=== PATIENT | female | born 1965 | race Caucasian/White ===

== ENCOUNTER 2020-03-03 03:59 | Inpatient (IN) ==
[2020-03-03] MEDS ORDERED: Dexamethasone IV 4 MG/ML VIAL 1 ml VIAL IV SLOW PU ONE (04:35)
[2020-03-03 05:05] LABS: ABS Lymphocytes 0.4 10^3/ul (1.0-4.8); ABS Monocytes 0.6 10^3/ul (0-0.8); ABS Neutrophils 14.3 10^3/ul (1.5-7.7); Eosinophil % 0.1 %; Hematocrit 30 % (35-47); Hemoglobin 8.7 g/dL (12.0-16.0); Lymphocyte % 2.6 %; Mean Corpuscular HGB Conc 29 g/dL (31-36); Mean Corpuscular Hemoglobin 19 pg (27-31); Mean Corpuscular Volume 64 fL (80-97); Mean Platelet Volume 8.8 fL (7.4-10.4); Nucleated Red Blood Cells % 0.1; Platelet Count 358 10^3/uL (150-450); Red Blood Count 4.69 10^6 /uL (3.70-4.87); Red Cell Distribution Width 24 % (10-15); White Blood Count 15.3 10^3/uL (3.5-10.8)
[2020-03-03 05:18] LABS: ALT 26 U/L (7-52); AST 18 U/L (13-39); Albumin 3.6 g/dL (3.2-5.2); Albumin/Globulin Ratio 1.1 (1-3); Alkaline Phosphatase 124 U/L (34-104); Blood Urea Nitrogen 33 mg/dL (6-24); C Reactive Protein 216.97 mg/L (<8.01); CO2 Carbon Dioxide 24 mmol/L (22-32); Calcium 8.4 mg/dL (8.6-10.3); Chloride 99 mmol/L (101-111); EGFR Non-African American 36.3 (>60); Globulin 3.4 g/dL (2-4); Glucose 424 mg/dL (70-100); Sodium 134 mmol/L (135-145)
[2020-03-03 05:20] LABS: Troponin I 0.02 ng/mL (<0.03)
[2020-03-03] MEDS ORDERED: Lactated Ringers 1000 ml BAG 1,000 ML IV ONE (05:26)
[2020-03-03] MEDS ORDERED: Iodixanol (CONTRAST) 320 MG/ML 100 ML SDV IV ONE (05:51)
[2020-03-03 06:26] LABS: Microcytosis 2+; Polychromasia 2+
[2020-03-03 06:27] LABS: Anion Gap 11 mmol/L (2-11); Potassium 5.1 mmol/L (3.5-5.0)
[2020-03-03] MEDS ORDERED: cefTRIAXone 1 gm/50 mL NS BAG 1 GM/50 ML BAG IV ONE (06:39)
[2020-03-03] MEDS ORDERED: Azithromycin 500 mg/250 ml NS 500 MG/250 ML BAG IVPB ONE (06:39)
[2020-03-03] MEDS ORDERED: Albuterol/Ipratropium NEB.SOL (2.5/0.5 MG) 3 ML NEB.SOLN INH ONE (06:59)
[2020-03-03] MEDS ORDERED: Albuterol HFA INHALER 8 gm MDI INH ONE (07:09)
[2020-03-03 08:13] LABS: Corrected Retic Count 2.7 % (0.5-1.5); Hematocrit for Retic CNT 31 % (35-47); Immature Retic Fraction 0.61; RBC Retic Count 4.74 10^6/uL (3.70-4.87)
[2020-03-03 08:32] LABS: Total Iron Binding Capacity 475 mcg/dL (250-450); Transferrin 339 mg/dL (203-362)
[2020-03-03 08:35] LABS: % Iron Saturation 4 % (15-55); Iron < 20 ug/dL (50-212); Unsaturated Iron Binding < 460 ug/dL
[2020-03-03 08:53] LABS: Ferritin 16.2 ng/mL (11-307)
[2020-03-03] MEDS ORDERED: Furosemide 40 mg/4 ml IV VIAL IV ONE (10:09)
[2020-03-03 12:18] LABS: Influenza A Molecular Negative (Negative); Influenza B Molecular Negative (Negative)
[2020-03-03] MEDS ORDERED: Perflutren Lipid Microsphere 3 ML VIAL ONE (13:31)
[2020-03-03] MEDS: methylPREDNISolone SOD 40 mg/ml 1 ml VIAL IV SCH ×2 (13:36→23:01)
[2020-03-04] MEDS ORDERED: Dextrose 50% Syringe 50 ml 25 GM/50 ML SYRINGE IV PUSH PRN (04:41)
[2020-03-04] MEDS ORDERED: Senna TAB 8.6 mg TAB PO PRN (04:42)
[2020-03-04] MEDS ORDERED: Albuterol 2.5mg/3 ml (0.083%) NEB.SOLN INH PRN (04:42)
[2020-03-04] MEDS ORDERED: Albuterol HFA INHALER 8 gm MDI INH PRN (04:47)
[2020-03-04] MEDS: Nystatin TOP POWDER 15 GM BTL TOPICAL SCH ×4 (04:48→21:11)
[2020-03-04] MEDS: methylPREDNISolone SOD 40 mg/ml 1 ml VIAL IV SCH ×3 (05:42→21:07)
[2020-03-04 06:41] LABS: INR 1.21 (0.82-1.09)
[2020-03-04 06:51] LABS: BUN/Creatinine Ratio 38.3 (8-20); Calcium 8.7 mg/dL (8.6-10.3); EGFR African American 64.9 (>60); EGFR Non-African American 53.6 (>60); Phosphorus 3.7 mg/dL (2.5-5.0)
[2020-03-04 06:55] LABS: Potassium 5.6 mmol/L (3.5-5.0)
[2020-03-04 07:02] LABS: Hematocrit 30 % (35-47); Hemoglobin 8.6 g/dL (12.0-16.0); Mean Corpuscular HGB Conc 29 g/dL (31-36); Mean Corpuscular Hemoglobin 19 pg (27-31); Mean Corpuscular Volume 65 fL (80-97); Mean Platelet Volume 9.5 fL (7.4-10.4); Platelet Count 331 10^3/uL (150-450); Red Blood Count 4.56 10^6 /uL (3.70-4.87); Red Cell Distribution Width 24 % (10-15); White Blood Count 10.3 10^3/uL (3.5-10.8)
[2020-03-04] MEDS: SPIRIVA Respimat (tiotropium) 2.5 mcg/inh Inhaler INH SCH (07:18)
[2020-03-04] MEDS ORDERED: Patiromer POWDER 8.4 GM PAK PO ONE (08:41)
[2020-03-04] MEDS ORDERED: Omeprazole 20 mg CAP (NF) PO SCH (09:00)
[2020-03-04] MEDS: Insulin GLARGINE 100 un/ml 10 ml VIAL SUBCUT SCH ×2 (09:17→21:04)
[2020-03-04] MEDS: oxyCODONE/Acetamin 5/325 mg TAB PO PRN (09:18)
[2020-03-04] MEDS: Azithromycin 500 mg/250 ml NS 500 MG/250 ML BAG IVPB SCH (10:05)
[2020-03-04] MEDS: cefTRIAXone 2 GM ADDV.VIAL 2 GM in NS 0.9% 100 ml BAG 100 ML IV SCH (10:05)
[2020-03-04] MEDS: Heparin 5000 UNITS/ML 1 mL VIAL SUBCUT SCH ×2 (11:16→21:07)
[2020-03-04 12:37] LABS: ALT 22 U/L (7-52); Albumin 3.5 g/dL (3.2-5.2); Albumin/Globulin Ratio 1.1 (1-3); Alkaline Phosphatase 102 U/L (34-104); BUN/Creatinine Ratio 43.4 (8-20); Blood Urea Nitrogen 43 mg/dL (6-24); CO2 Carbon Dioxide 26 mmol/L (22-32); Calcium 8.7 mg/dL (8.6-10.3); Chloride 99 mmol/L (101-111); EGFR Non-African American 58.7 (>60); Globulin 3.3 g/dL (2-4); Glucose 325 mg/dL (70-100); Sodium 133 mmol/L (135-145); Total Protein 6.8 g/dL (6.4-8.9)
[2020-03-04 12:42] LABS: Anion Gap 8 mmol/L (2-11)
[2020-03-04 14:33] LABS: Potassium Redraw 5.1 mmol/L (3.5-5.0)
[2020-03-04 17:01] LABS: Glucose Confirmatory 412 mg/dL (70-100)
[2020-03-04] MEDS ORDERED: Insulin GLARGINE 100 un/ml 10 ml VIAL SUBCUT ONE (20:42)
[2020-03-04 21:11] LABS: Adenovirus Negative (Negative); Bordetella parapertussis Negative (Negative); Bordetella pertussis Negative (Negative); Chlamydophila pneumoniae Negative (Negative); Coronavirus 229E Negative (Negative); Coronavirus HKU1 Negative (Negative); Coronavirus NL63 Negative (Negative); Coronavirus OC43 Negative (Negative); Human Metapneumovirus Negative (Negative); Human Rhinovirus/ Enterovirus Negative (Negative); Influenza A Negative (Negative); Influenza B Negative (Negative); Mycoplasmoides pneumoniae Negative (Negative); Parainfluenza Virus 1 Negative (Negative); Parainfluenza Virus 2 Negative (Negative); Parainfluenza Virus 3 Negative (Negative); Parainfluenza Virus 4 Negative (Negative); Respiratory Syncytial Virus Negative (Negative); Specimen Source NASOPHARYNGEAL SWAB
[2020-03-05] MEDS: oxyCODONE/Acetamin 5/325 mg TAB PO PRN ×2 (03:22→15:00)
[2020-03-05 05:29] LABS: ABS Lymphocytes 0.6 10^3/ul (1.0-4.8); ABS Monocytes 0.5 10^3/ul (0-0.8); ABS Neutrophils 8.9 10^3/ul (1.5-7.7); ABS Nucleated RBC 0.1 10^3/ul; Hematocrit 30 % (35-47); Hemoglobin 8.8 g/dL (12.0-16.0); Lymphocyte % 6.2 %; Mean Corpuscular HGB Conc 29 g/dL (31-36); Mean Corpuscular Hemoglobin 19 pg (27-31); Mean Corpuscular Volume 64 fL (80-97); Mean Platelet Volume 8.9 fL (7.4-10.4); Nucleated Red Blood Cells % 0.5; Platelet Count 346 10^3/uL (150-450); Red Blood Count 4.72 10^6 /uL (3.70-4.87); Red Cell Distribution Width 24 % (10-15)
[2020-03-05 05:39] LABS: Anion Gap 6 mmol/L (2-11); BUN/Creatinine Ratio 46.9 (8-20); Blood Urea Nitrogen 46 mg/dL (6-24); CO2 Carbon Dioxide 29 mmol/L (22-32); Calcium 9.2 mg/dL (8.6-10.3); Chloride 100 mmol/L (101-111); EGFR African American 71.8 (>60); EGFR Non-African American 59.4 (>60); Glucose 283 mg/dL (70-100); Potassium 5.7 mmol/L (3.5-5.0); Sodium 135 mmol/L (135-145)
[2020-03-05] MEDS: SPIRIVA Respimat (tiotropium) 2.5 mcg/inh Inhaler INH SCH (07:53)
[2020-03-05] MEDS ORDERED: Sodium Polystyrene ORAL.SUSP 15 GM/60 ML BTL PO ONE (08:20)
[2020-03-05] MEDS ORDERED: Insulin GLARGINE 100 un/ml 10 ml VIAL SUBCUT SCH (09:00)
[2020-03-05] MEDS ORDERED: Pneumococcal Vac 23-Polyvalent IM ONE (09:00)
[2020-03-05] MEDS: Heparin 5000 UNITS/ML 1 mL VIAL SUBCUT SCH (09:35)
[2020-03-05] MEDS: methylPREDNISolone SOD 40 mg/ml 1 ml VIAL IV SCH (09:36)
[2020-03-05] MEDS: cefTRIAXone 2 GM ADDV.VIAL 2 GM in NS 0.9% 100 ml BAG 100 ML IV SCH (10:03)
[2020-03-05] MEDS: Nystatin TOP POWDER 15 GM BTL TOPICAL SCH ×2 (10:06→13:37)
[2020-03-05] MEDS: Azithromycin 500 mg/250 ml NS 500 MG/250 ML BAG IVPB SCH (10:50)
[2020-03-05 10:51] LABS: Ferritin 13.6 ng/mL (11-307)
[2020-03-05 11:04] LABS: Total Iron Binding Capacity 500 mcg/dL (250-450); Transferrin 357 mg/dL (203-362)
[2020-03-05 11:06] LABS: % Iron Saturation 4 % (15-55); Iron < 20 ug/dL (50-212); Unsaturated Iron Binding < 485 ug/dL
[2020-03-05 13:35] LABS: BUN/Creatinine Ratio 44.6 (8-20); Calcium 9.3 mg/dL (8.6-10.3); EGFR African American 77.3 (>60); EGFR Non-African American 63.9 (>60)
[2020-03-05 16:14] VITALS: BP 145/63
== END 2020-03-05 17:30 | disposition home or self-care (01) | DRG 193 ==
LOC: ED 03:59 → ICU 09:57 → MEDTELE 03-04 16:10
PROVIDERS: ADMIT Internal Medicine; ATTEND Internal Medicine

== ENCOUNTER 2020-05-17 11:41 | Inpatient (IN) ==
[2020-05-17] MEDS ORDERED: Albuterol HFA INHALER 8 gm MDI INH ONE (12:34)
[2020-05-17] MEDS ORDERED: methylPREDNISolone 125 mg 2 ML VIAL IV ONE (12:34)
[2020-05-17 14:03] LABS: ABS Basophils 0.1 10^3/ul (0-0.2); ABS Eosinophils 0.1 10^3/ul (0-0.6); ABS Lymphocytes 0.4 10^3/ul (1.0-4.8); ABS Monocytes 0.7 10^3/ul (0-0.8); Eosinophil % 0.5 %; Hematocrit 37 % (35-47); Hemoglobin 11.4 g/dL (12.0-16.0); Lymphocyte % 1.8 %; Mean Corpuscular HGB Conc 31 g/dL (31-36); Mean Corpuscular Hemoglobin 26 pg (27-31); Mean Corpuscular Volume 84 fL (80-97); Mean Platelet Volume 9.2 fL (7.4-10.4); Platelet Count 263 10^3/uL (150-450); Red Blood Count 4.41 10^6 /uL (3.70-4.87); Red Cell Distribution Width 24 % (10-15); White Blood Count 21.3 10^3/uL (3.5-10.8)
[2020-05-17 14:11] LABS: Activated Partial Thrombo Time 27.7 seconds (26.0-38.0); INR 1.17 (0.82-1.09)
[2020-05-17 14:20] LABS: Influenza A Molecular Negative (Negative); Influenza B Molecular Negative (Negative)
[2020-05-17 14:22] LABS: Albumin 3.8 g/dL (3.2-5.2); Albumin/Globulin Ratio 1.2 (1-3); BUN/Creatinine Ratio 40.7 (8-20); C Reactive Protein 199.54 mg/L (<8.01); Calcium 9.7 mg/dL (8.6-10.3); EGFR African American 77.9 (>60); EGFR Non-African American 64.4 (>60); Globulin 3.3 g/dL (2-4); Potassium 5.1 mmol/L (3.5-5.0); Total Bilirubin 0.5 mg/dL (0.2-1.0); Total Protein 7.1 g/dL (6.4-8.9); Troponin I 0.01 ng/mL (<0.03)
[2020-05-17] MEDS ORDERED: cefTRIAXone 1 gm/50 mL NS BAG 1 GM/50 ML BAG IVPB ONE (15:20)
[2020-05-17] MEDS ORDERED: Azithromycin 500 mg/250 ml NS 500 MG/250 ML BAG IVPB ONE (15:20)
[2020-05-17 15:53] LABS: Urine Appearance Cloudy; Urine Bilirubin Negative (Negative); Urine Blood Negative (Negative); Urine Color Yellow; Urine Glucose Negative (Negative); Urine Ketones Trace (Negative); Urine Nitrite Negative (Negative); Urine Protein Negative (Negative); Urine Specific Gravity 1.019 (1.010-1.030); Urine Urobilinogen Negative (Negative)
[2020-05-17] MEDS ORDERED: Iodixanol (CONTRAST) 320 MG/ML 100 ML SDV IV ONE (16:23)
[2020-05-17] MEDS ORDERED: Ondansetron ODT 4 mg TAB 4 MG TAB PO PRN (16:28)
[2020-05-17] MEDS ORDERED: oxyCODONE/Acetamin 10/325(NF) TAB PO PRN (16:28)
[2020-05-17] MEDS ORDERED: Furosemide 40 mg/4 ml IV VIAL IV ONE (16:32)
[2020-05-17] MEDS ORDERED: Dextrose 50% Syringe 50 ml 25 GM/50 ML SYRINGE IV PUSH PRN (16:35)
[2020-05-17] MEDS ORDERED: Albuterol HFA INHALER 8 gm MDI INH PRN (18:09)
[2020-05-17] MEDS ORDERED: oxyCODONE/Acetamin 5/325 mg TAB PO PRN (18:33)
[2020-05-17] MEDS ORDERED: Piperacillin/Tazobac ADVAN 3.375 GM in NS 0.9% 100 ml BAG 100 ML IV ONE (19:07)
[2020-05-17] MEDS ORDERED: Heparin DRIP 25,000 UNITS BAG 25,000 UNITS/500 ML BAG IV SCH (19:15)
[2020-05-17] MEDS: Furosemide 20 mg/2 ml IV VIAL IV SCH (19:16)
[2020-05-17 19:40] LABS: Hematocrit 39 % (35-47); Hemoglobin 12.5 g/dL (12.0-16.0); Mean Corpuscular HGB Conc 32 g/dL (31-36); Mean Corpuscular Hemoglobin 27 pg (27-31); Mean Corpuscular Volume 84 fL (80-97); Mean Platelet Volume 9.1 fL (7.4-10.4); Platelet Count 297 10^3/uL (150-450); Red Blood Count 4.68 10^6 /uL (3.70-4.87); Red Cell Distribution Width 24 % (10-15); White Blood Count 17.5 10^3/uL (3.5-10.8)
[2020-05-17 19:56] LABS: EGFR Non-African American 63.6 (>60)
[2020-05-17] MEDS ORDERED: Heparin 5000 UNITS/ML 1 mL VIAL IV SCH (20:00)
[2020-05-17] MEDS ORDERED: Zosyn per Pharmacy NOTE FOLLOW UP SCH (20:00)
[2020-05-17 20:13] LABS: Polychromasia 1+
[2020-05-17 20:14] LABS: ABS Lymphocytes 0.4 10^3/ul (1.0-4.8); ABS Monocytes 0.2 10^3/ul (0-0.8); ABS Neutrophils 16.9 10^3/ul (1.5-7.7); Eosinophil % 0.1 %
[2020-05-17] MEDS ORDERED: Enoxaparin 40 MG/0.4 ML SYR SUBCUT SCH (21:00)
[2020-05-17] MEDS ORDERED: Mometasone/Formoter 200/5 MDI INH SCH (21:00)
[2020-05-17] MEDS: methylPREDNISolone SOD 40 mg/ml 1 ml VIAL IV SCH (21:37)
[2020-05-17] MEDS: Albuterol/Ipratropium NEB.SOL (2.5/0.5 MG) 3 ML NEB.SOLN INH SCH (23:15)
[2020-05-18] MEDS: ZOSYN 3.375 GM Q8H per EXTENDED INFUSION IV SCH ×3 (00:32→16:36)
[2020-05-18] MEDS: Albuterol/Ipratropium NEB.SOL (2.5/0.5 MG) 3 ML NEB.SOLN INH SCH ×3 (03:25→15:17)
[2020-05-18] MEDS: methylPREDNISolone SOD 40 mg/ml 1 ml VIAL IV SCH (08:25)
[2020-05-18] MEDS: Furosemide 20 mg/2 ml IV VIAL IV SCH (08:25)
[2020-05-18] MEDS ORDERED: Polyethylene Glycol 3350 17 GM PACKET PO SCH (09:00)
[2020-05-18] MEDS ORDERED: Insulin GLARGINE 100 un/ml 10 ml VIAL SUBCUT SCH (09:00)
[2020-05-18] MEDS ORDERED: SPIRIVA Respimat (tiotropium) 2.5 mcg/inh Inhaler INH SCH (09:00)
[2020-05-18] MEDS ORDERED: Azithromycin 500 mg/250 ml NS 500 MG/250 ML BAG IVPB SCH (09:00)
[2020-05-18] MEDS ORDERED: Pantoprazole VIAL 40 MG VIAL IV SCH (09:00)
[2020-05-18] MEDS ORDERED: cefTRIAXone 1 gm/50 mL NS BAG 1 GM/50 ML BAG IVPB SCH (09:00)
[2020-05-18] MEDS ORDERED: Perflutren Lipid Microsphere 3 ML VIAL ONE (09:32)
[2020-05-18] MEDS ORDERED: Enoxaparin 40 MG/0.4 ML SYR SUBCUT SCH ×2 (11:00)
[2020-05-18 11:47] LABS: Hematocrit 40 % (35-47); Hemoglobin 12.3 g/dL (12.0-16.0); Mean Corpuscular HGB Conc 31 g/dL (31-36); Mean Corpuscular Hemoglobin 26 pg (27-31); Mean Corpuscular Volume 84 fL (80-97); Mean Platelet Volume 9.1 fL (7.4-10.4); Platelet Count 327 10^3/uL (150-450); Red Blood Count 4.71 10^6 /uL (3.70-4.87); Red Cell Distribution Width 24 % (10-15); White Blood Count 16.6 10^3/uL (3.5-10.8)
[2020-05-18 12:32] LABS: BUN/Creatinine Ratio 43.6 (8-20); Calcium 10.1 mg/dL (8.6-10.3); EGFR African American 69.1 (>60); EGFR Non-African American 57.1 (>60); Potassium 4.8 mmol/L (3.5-5.0)
[2020-05-18] MEDS ORDERED: methylPREDNISolone SOD 40 mg/ml 1 ml VIAL IV SCH (16:00)
[2020-05-18 17:05] VITALS: BP 149/86
== END 2020-05-18 18:15 | disposition home or self-care (01) | DRG 193 ==
LOC: ED 11:41 → MED 17:32
PROVIDERS: ADMIT Hospitalist; ATTEND Internal Medicine

== ENCOUNTER 2023-01-20 01:53 | Inpatient (IN) ==
[2023-01-20 02:56] LABS: ABS Basophils 0.1 10^3/uL (0.0-0.1); ABS Eosinophils 0.1 10^3/uL (0.0-0.5); ABS Lymphocytes 1.6 10^3/uL (1.0-4.8); ABS Monocytes 1.5 10^3/uL (0.0-0.9); ABS Neutrophils 8.8 10^3/uL (1.5-7.6); ABS Nucleated RBC 0.01 10^3/ul; Eosinophil % 0.8 %; Hematocrit 46.8 % (35-45); Hemoglobin 15.1 g/dL (11.5-14.3); Lymphocyte % 12.9 %; Mean Corpuscular Hemoglobin 28.1 pg (27-33); Mean Corpuscular Hgb Conc 32.2 g/dL (31-36); Mean Corpuscular Volume 87.1 fL (80-97); Mean Platelet Volume 9.1 fL (7.5-11.2); Nucleated Red Blood Cells % 0.1 %/100WBC (0.0-0.8); Platelet Count 380 10^3/uL (150-450); Red Blood Count 5.38 10^6/uL (3.63-4.92); White Blood Count 12.1 10^3/uL (3.8-11.8)
[2023-01-20] MEDS ORDERED: Azithromycin 500 mg/250 ml NS 500 MG/250 ML BAG IVPB ONE (03:10)
[2023-01-20] MEDS ORDERED: methylPREDNISolone SOD SUCC 125 mg 2 ML VIAL IV ONE (03:10)
[2023-01-20] MEDS ORDERED: cefTRIAXone 1 gm/50 mL D5W 1 GM/50 ML BAG IV ONE (03:10)
[2023-01-20 03:22] LABS: High Sens Troponin Baseline 3 pg/mL (<15)
[2023-01-20 03:25] LABS: ALT 66 U/L (7-52); Albumin 4.1 g/dL (3.2-5.2); Albumin/Globulin Ratio 0.9 (1-3); Alkaline Phosphatase 108 U/L (35-149); Anion Gap 10 mmol/L (2-16); Blood Urea Nitrogen 36 mg/dL (6-24); C Reactive Protein 8.39 mg/L (<8.01); CO2 Carbon Dioxide 27 mmol/L (22-32); Calcium 9.8 mg/dL (8.6-10.3); Chloride 103 mmol/L (101-111); Creatinine, Serum 1.11 mg/dL (0.51-0.95); Globulin 4.5 g/dL (2-4); Glucose 120 mg/dL (70-100); Sodium 140 mmol/L (135-145); Total Bilirubin 0.7 mg/dL (0.2-1.0); Total Protein 8.6 g/dL (6.4-8.9); eGFR CKD-EPI 58.3 (>60)
[2023-01-20 04:27] LABS: Potassium Redraw 4.5 mmol/L (3.5-5.0)
[2023-01-20] MEDS ORDERED: Albuterol/Ipratropium NEB.SOL (2.5/0.5 MG) 3 ML NEB.SOLN INH PRN (05:19)
[2023-01-20] MEDS ORDERED: Dextrose 50% Syringe 50 ml 25 GM/50 ML SYRINGE IV PUSH PRN (05:21)
[2023-01-20 06:30] LABS: ABS Lymphocytes 0.8 10^3/uL (1.0-4.8); ABS Monocytes 0.4 10^3/uL (0.0-0.9); ABS Neutrophils 10.9 10^3/uL (1.5-7.6); ABS Nucleated RBC 0.01 10^3/ul; Eosinophil % 0.3 %; Hematocrit 46.1 % (35-45); Lymphocyte % 6.4 %; Mean Corpuscular Hgb Conc 32.4 g/dL (31-36); Mean Corpuscular Volume 86.2 fL (80-97); Mean Platelet Volume 9.2 fL (7.5-11.2); Nucleated Red Blood Cells % 0.1 %/100WBC (0.0-0.8); Platelet Count 377 10^3/uL (150-450); Red Blood Count 5.35 10^6/uL (3.63-4.92); Red Cell Distribution Width 16.2 % (12-17); White Blood Count 12.1 10^3/uL (3.8-11.8)
[2023-01-20 06:51] LABS: Anion Gap 10 mmol/L (2-16); Blood Urea Nitrogen 38 mg/dL (6-24); CO2 Carbon Dioxide 26 mmol/L (22-32); Calcium 9.5 mg/dL (8.6-10.3); Chloride 105 mmol/L (101-111); Creatinine, Serum 1.16 mg/dL (0.51-0.95); Glucose 172 mg/dL (70-100); Sodium 141 mmol/L (135-145); eGFR CKD-EPI 55.3 (>60)
[2023-01-20] MEDS ORDERED: Remdesivir 100 mg Vial 200 MG in NS 0.9% 250 ml 210 ML IV ONE (07:47)
[2023-01-20] MEDS: Enoxaparin 40 MG/0.4 ML SYR SUBCUT SCH ×2 (08:57→20:26)
[2023-01-20] MEDS: Insulin GLARGINE 100 un/ml 10 ml VIAL SUBCUT SCH (08:57)
[2023-01-20] MEDS ORDERED: Ondansetron 4 mg VIAL 2 MG/ML 2 ml VIAL IV PRN (08:59)
[2023-01-20] MEDS: Mometasone/Formoter 200/5 MDI INH SCH ×2 (10:55→19:35)
[2023-01-20] MEDS ORDERED: methylPREDNISolone SOD SUCC 40 mg/ml 1 ml VIAL IV SCH (17:00)
[2023-01-20] MEDS: guaiFENesin 100 mg/5 ml LIQ unit dose cup PO PRN (20:32)
[2023-01-21] MEDS ORDERED: HYDROmorphone 1 MG/1 ML SYRINGE IV ONE (02:58)
[2023-01-21] MEDS: cefTRIAXone 1 gm/50 mL D5W 1 GM/50 ML BAG IV SCH (06:15)
[2023-01-21 07:06] LABS: Hematocrit 43.7 % (35-45); Mean Corpuscular Hemoglobin 28.1 pg (27-33); Mean Corpuscular Hgb Conc 32.1 g/dL (31-36); Mean Corpuscular Volume 87.4 fL (80-97); Mean Platelet Volume 9.4 fL (7.5-11.2); Platelet Count 333 10^3/uL (150-450)
[2023-01-21 07:13] LABS: Calcium 9.6 mg/dL (8.6-10.3); Creatinine, Serum 1.23 mg/dL (0.51-0.95); eGFR CKD-EPI 51.6 (>60)
[2023-01-21 07:14] LABS: Albumin 3.9 g/dL (3.2-5.2); Globulin 3.8 g/dL (2-4); Total Bilirubin 0.6 mg/dL (0.2-1.0); Total Protein 7.7 g/dL (6.4-8.9)
[2023-01-21] MEDS: Mometasone/Formoter 200/5 MDI INH SCH ×2 (08:03→19:25)
[2023-01-21] MEDS: Remdesivir 100 mg Vial 100 MG in NS 0.9% 250 ml 230 ML IV SCH (08:43)
[2023-01-21] MEDS: Enoxaparin 40 MG/0.4 ML SYR SUBCUT SCH ×2 (08:48→20:38)
[2023-01-21] MEDS: Insulin GLARGINE 100 un/ml 10 ml VIAL SUBCUT SCH (08:49)
[2023-01-21] MEDS ORDERED: Polyethylene Glycol 3350 17 GM PACKET PO PRN (20:39)
[2023-01-22] MEDS: cefTRIAXone 1 gm/50 mL D5W 1 GM/50 ML BAG IV SCH (05:09)
[2023-01-22] MEDS: guaiFENesin 100 mg/5 ml LIQ unit dose cup PO PRN (05:15)
[2023-01-22 06:56] LABS: Albumin 3.7 g/dL (3.2-5.2); Albumin/Globulin Ratio 1.1 (1-3); Calcium 9.1 mg/dL (8.6-10.3); Creatinine, Serum 1.29 mg/dL (0.51-0.95); Globulin 3.4 g/dL (2-4); Potassium 4.2 mmol/L (3.5-5.0); Total Bilirubin 0.5 mg/dL (0.2-1.0); Total Protein 7.1 g/dL (6.4-8.9); eGFR CKD-EPI 48.7 (>60)
[2023-01-22] MEDS: Mometasone/Formoter 200/5 MDI INH SCH (08:04)
[2023-01-22] MEDS: Enoxaparin 40 MG/0.4 ML SYR SUBCUT SCH (08:49)
[2023-01-22] MEDS: Insulin GLARGINE 100 un/ml 10 ml VIAL SUBCUT SCH (08:50)
[2023-01-22] MEDS: Remdesivir 100 mg Vial 100 MG in NS 0.9% 250 ml 230 ML IV SCH (08:52)
[2023-01-22] MEDS ORDERED: Lactated Ringers 1000 ml BAG 1,000 ML IV SCH (10:00)
[2023-01-22 15:07] VITALS: BP 155/99
== END 2023-01-22 15:30 | disposition home or self-care (01) | DRG 177 ==
LOC: EDHOLD 01:53 → ED 01:53 → SUATTDRO 04:51 → MED 09:45 → SUATTDRO 01-21 13:51
PROVIDERS: ADMIT Internal Medicine; ATTEND Student in an Organized Health Care Education/Training Program